=== PATIENT | male | born 1995 | race Caucasian/White ===

== ENCOUNTER → 2018-03-03 01:13 | Emergency (ER) | payer OTHER ==
--- NOTE | 2018-03-03 01:31 | ED ---
Laceration/Wound HPI - HPI Summary HPI Summary: 23-year-old male presents with facial laceration today. He states he slipped on the ice and landed on his face. He denies loss consciousness. No headache. No nausea and vomiting. No dizziness. He has some bleeding coming from laceration of the nose and upper lip. no neck pain. No loose teeth. Denies any jaw pain. nares is midline. nose may have bleed. - History of Current Complaint Stated Complaint: FALL/FACIAL INJURY Time Seen by Provider: 03/03/18 01:21 Pain Intensity: 5 - Allergy/Home Medications Allergies/Adverse Reactions: Allergies Allergy/AdvReac Type Severity Reaction Status Date / Time aloe vera [From Duraflex] Allergy Unknown Verified 03/03/18 01:35 Reaction Details calcium [From Duraflex] Allergy Unknown Verified 03/03/18 01:35 Reaction Details cayenne [From Duraflex] Allergy Unknown Verified 03/03/18 01:35 Reaction Details chondroitin sulfate A Allergy Unknown Verified 03/03/18 01:35 [From Duraflex] Reaction Details glucosamine [From Duraflex] Allergy Unknown Verified 03/03/18 01:35 Reaction Details herbal complex no. 115 Allergy Unknown Verified 03/03/18 01:35 [From Duraflex] Reaction Details menthol [From Duraflex] Allergy Unknown Verified 03/03/18 01:35 Reaction Details methyl salicylate Allergy Unknown Verified 03/03/18 01:35 [From Duraflex] Reaction Details methylsulfonylmethane Allergy Unknown Verified 03/03/18 01:35 [From Duraflex] Reaction Details PMH/Surg Hx/FS Hx/Imm Hx Endocrine/Hematology History: Denies: Hx Anticoagulant Therapy Respiratory History: Denies: Hx Asthma Infectious Disease History: No Infectious Disease History: Denies: Traveled Outside the [place] in Last 30 Days - Family History Known Family History: Positive: Non-Contributory - Social History Alcohol Use: Occasionally Substance Use Type: Reports: None Review of Systems Negative: Fever Negative: Chest Pain Negative: Shortness Of Breath Positive: Other - laceration to nose and lip Negative: Headache All Other Systems Reviewed And Are Negative: Yes Physical Exam Triage Information Reviewed: Yes Vital Signs On Initial Exam: Initial Vitals Temp Pulse Resp BP Pulse Ox 98.8 F 93 16 124/80 98 03/03/18 01:15 03/03/18 01:15 03/03/18 01:15 03/03/18 01:15 03/03/18 01:15 Vital Signs Reviewed: Yes Appearance: Positive: Well-Appearing Skin: Positive: Warm, Dry, Other - 1cm superficial laceration on nose, 2cm siperficial stellate laceration near upper lip Head/Face: Positive: Other - edema of upper lip Eyes: Positive: Normal, EOMI, SHANNON, Conjunctiva Clear ENT: Positive: Normal ENT inspection, Pharynx normal, TMs normal, Other - nares midline, no blood in nares Respiratory/Lung Sounds: Positive: Clear to Auscultation, Breath Sounds Present Cardiovascular: Positive: Normal, RRR Musculoskeletal: Positive: Normal Neurological: Positive: Sensory/Motor Intact, Alert, Oriented to Person Place, Time, CN Intact II-III Psychiatric: Positive: Normal - Denzel Coma Scale Best Eye Response: 4 - Spontaneous Best Motor Response: 6 - Obeys Commands Best Verbal Response: 5 - Oriented Coma Scale Total: 15 Procedures - Laceration/Wound Repair face Location: face Description: Irregular Length, Depth and Shape: 1cm superficial nose, 2cm stellate above upper lip Irrigated w/ Saline (ccs): 50 Closure: Skin Adhesive Diagnostics - Vital Signs Vital Signs Temp Pulse Resp BP Pulse Ox 03/03/18 01:15 98.8 F 93 16 124/80 98 - Laboratory Lab Statement: Any lab studies that have been ordered have been reviewed, and results considered in the medical decision making process. Laceration Repair Course/Dx - Course Course Of Treatment: 23-year-old male presents with facial laceration today. He states he slipped on the ice and landed on his face. He denies loss consciousness. No headache. No nausea and vomiting. No dizziness. He has some bleeding coming from laceration of the nose and upper lip. no neck pain. No loose teeth. Denies any jaw pain. nares is midline. nose may have bleed. On exam naris is midline. Some edema noted. Has 1 cm superficial laceration to the nose that cleaned and closed with glue. Has a stellate laceration of the upper lip that cleaned and closed with glue. full range of motion of the jaw. Normal neuro exam. Told to keep the area clean and dry. Patient understands agrees plan. - Differential Dx Differental Diagnoses: Abrasion, Avulsion, Laceration - Clinical Impression Provider Diagnoses: Facial contusion, Facial laceration Discharge - Sign-Out/Discharge Documenting (check all that apply): Patient Departure - Discharge Plan Condition: Good Disposition: HOME Patient Education Materials: Skin Adhesive Care (ED) Referrals: No Primary Care Phys,NOPCP [Primary Care Provider] - Additional Instructions: Place ice on area Take Tylenol or ibuprofen for pain as needed every 6 hours Keep dry for 24 hours Glue will fall off on own Avoid scrubbing area Use sunscreen on area after laceration has healed Return to ED if develop any signs of infection or any new or worsening symptoms - Billing Disposition and Condition Condition: GOOD Disposition: Home
[2018-03-03 02:05] VITALS: BP 120/77
== END | disposition home or self-care (01) ==
LOC: ED 01:13
DX: S01.21XA Laceration without foreign body of nose, initial encounter (principal); S01.511A Laceration without foreign body of lip, initial encounter; S00.83XA Contusion of other part of head, initial encounter; W00.0XXA Fall on same level due to ice and snow, initial encounter; Y92.9 Unspecified place or not applicable
CPT/HCPCS: 99282

== ENCOUNTER 2018-06-25 02:04 | Emergency (ER) | payer OTHER ==
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
[2018-06-25] MEDS ORDERED: NS 0.9% 1000 ML** 1,000 ML IV ONE (02:48)
[2018-06-25 05:23] VITALS: BP 102/51
== END 2018-06-25 05:22 | disposition home or self-care (01) ==
LOC: ED 02:04
DX: S00.81XA Abrasion of other part of head, initial encounter (principal); Y04.0XXA Assault by unarmed brawl or fight, initial encounter; Y92.9 Unspecified place or not applicable
CPT/HCPCS: 70450; 96360; 99283